=== PATIENT | male | born 1975 | race Caucasian/White ===

== ENCOUNTER 2017-08-18 10:56 | Emergency (ER) | payer SELFPAY ==
[2017-08-18 11:15] VITALS: BP 131/80
--- NOTE | 2017-08-18 12:04 | UC ---
Skin Complaint HPI - HPI Summary HPI Summary: Pt has hx of eczema, mostly on elbows and knees, usually acts up this time of year. Hasn't seen PCP in a long time, usually very healthy. Uses triamcinolone 1 % cream, is out now and needs a refill. - History of Current Complaint Chief Complaint: UCSkin Time Seen by Provider: 08/18/17 11:42 Stated Complaint: SKIN COMPLAINT Hx Obtained From: Patient Onset/Duration: Gradual Onset, Lasting Weeks Timing: Constant Onset Severity: Mild Current Severity: Moderate Pain Intensity: 0 Character: Pruritus, Redness Aggravating Factor(s): Other - weather Alleviating Factor(s): Nothing Associated Signs & Symptoms: Positive: Rash - Allergy/Home Medications Allergies/Adverse Reactions: Allergies Allergy/AdvReac Type Severity Reaction Status Date / Time No Known Allergies Allergy Verified 06/21/15 10:03 Review of Systems Constitutional: Negative Skin: Rash Eyes: Negative ENT: Negative Respiratory: Negative Cardiovascular: Negative Gastrointestinal: Negative Genitourinary: Negative Motor: Negative Neurovascular: Negative Musculoskeletal: Negative Neurological: Negative Psychological: Negative Is Patient Immunocompromised?: No All Other Systems Reviewed And Are Negative: Yes PMH/Surg Hx/FS Hx/Imm Hx - Additional Past Medical History Additional PMH: eczema - Surgical History Surgical History: None - Family History Known Family History: Positive: None Family History: NON CONTRIBUTORY - Social History Occupation: Employed Full-time Lives: With Family Alcohol Use: Weekly Substance Use Type: None Smoking Status (MU): Former Smoker - Immunization History Most Recent Tetanus Shot: 2007 Physical Exam Triage Information Reviewed: Yes Appearance: Well-Appearing, No Pain Distress, Well-Nourished Vital Signs: Initial Vital Signs Temp 98.0 F 08/18/17 11:11 Pulse 66 08/18/17 11:11 Resp 18 08/18/17 11:11 BP 131/80 08/18/17 11:11 Pulse Ox 98 08/18/17 11:11 Vital Signs Reviewed: Yes Eye Exam: Normal Eyes: Positive: Conjunctiva Clear ENT Exam: Normal ENT: Positive: Normal ENT inspection, Hearing grossly normal, Pharynx normal, TMs normal Neck exam: Normal Respiratory Exam: Normal Respiratory: Positive: Chest non-tender, Lungs clear, Normal breath sounds, No respiratory distress, No accessory muscle use Cardiovascular Exam: Normal Cardiovascular: Positive: RRR, No Murmur Musculoskeletal Exam: Normal Neurological Exam: Normal Neurological: Positive: Alert Skin Exam: Other - dry, inflamed plaques on extensor surfaces of elbows and knees Course/Dx - Diagnoses Provider Diagnoses: eczema Discharge - Sign-Out/Discharge Documenting (check all that apply): Discharge - Discharge Plan Condition: Stable Disposition: HOME Prescriptions: Triamcinolone 0.1% CREAM (NF) [Kenalog 0.1% Cream (NF)] 1 applic TOPICAL BID # 60 tube Patient Education Materials: Eczema (ED) Referrals: Dom BREAUX,Rick Cabrera [Primary Care Provider] - Additional Instructions: Please follow up with your primary care provider - Billing Disposition and Condition Condition: STABLE Disposition: HOME
== END 2017-08-18 12:00 | disposition home or self-care (01) ==
LOC: UCEAST 10:56
DX: L30.9 Dermatitis, unspecified (principal); Z76.0 Encounter for issue of repeat prescription; Z87.891 Personal history of nicotine dependence
CPT/HCPCS: 99212; G0463